=== PATIENT | male | born 1940 | race Caucasian/White ===

== ENCOUNTER 2017-01-22 08:51 | Day surgery (SDC) | payer MEDICARE, OTHER ==
[~2017-01-22 08:51] MED LIST: ADULT ASPIRIN81 MG PO; ENALAPRIL MALE2.5 M1 PO; METFORMIN HCL500 M4 PO; NIASPAN500 M1 PO; OMEPRAZOLE20 M3 PO; PREDNISONE; XARELTO20 M1 PO
[2017-01-22 09:41] LABS: BASO % 0.1 % (0-2); EOS % 0.5 % (0-7); HCT-HEMATOCRIT 41.4 % (36.0-53.5); HGB-HEMOGLOBIN 14.1 gm/dl (13.5-17.0); IMMATURE GRANULOCYTES ABSOLUTE 0.01 tho/cmm (0-0.03); IMMATURE GRANULOCYTES PERCENT 0.1 % (0-0.3); LYMPH % 77.5 % (20-45); MCH (MEAN CORPUSCULAR HGB) 32.9 pg (28.0-32.0); MCHC MEAN CORPUSCULAR HGB CONC 34.1 % (32.0-36.0); MCV (MEAN CELL VOLUME) 96.5 fl (82.0-96.0); MEAN PLATELET VOLUME 10.7 cmc (9.4-12.4); MONO % 7.2 % (0-12); NEUTROPHILS % 14.6 % (40-80); PLATELET COUNT 101 tho/cmm (150-450); RED BLOOD COUNT 4.29 mil/cmm (4.40-5.70); RED CELL DISTRIBUTION WIDTH 14.9 % (12.4-16.4); WHITE BLOOD COUNT 13.9 tho/cmm (4.0-10.0)
[2017-01-22 09:47] LABS: PROTHROMBIN TIME 12.1 SECONDS (9.0-13.6)
[2017-01-22 09:49] LABS: EOSINOPHIL ABSOLUTE COUNT 0.1 tho/cmm (0.0-0.7); LYMPH ABSOLUTE COUNT 10.8 tho/cmm (0.8-4.5)
[2017-01-22 11:00] LABS: WBC MORPHOLOGY VARIANT LYMPHS
[2017-01-22 14:49] LABS: BAL APPEARANCE CLEAR (CLEAR); BAL COLOR COLORLESS (COLORLESS)
[2017-01-22 15:55] LABS: BAL EOSINOPHILS 0 %; BAL LYMPHOCYTES 31 %; BAL NEUTROPHILS 10 %
== END 2017-01-22 14:05 ==
LOC: ENDOS 08:51 → SHSC 08:53
PROVIDERS: Internal Medicine Critical Care Medicine
PROC: 0B968ZX Drainage of Right Lower Lobe Bronchus, Via Natural or Artificial Opening Endoscopic, Diagnostic (ICD-10-PCS; principal; 2017-01-22)
DX: J90 Pleural effusion, not elsewhere classified (principal); I25.10 Atherosclerotic heart disease of native coronary artery without angina pectoris; I10 Essential (primary) hypertension; E11.9 Type 2 diabetes mellitus without complications; K21.9 Gastro-esophageal reflux disease without esophagitis; M19.90 Unspecified osteoarthritis, unspecified site; Z79.01 Long term (current) use of anticoagulants; Z79.84 Long term (current) use of oral hypoglycemic drugs; Z79.899 Other long term (current) drug therapy; Z86.711 Personal history of pulmonary embolism; Z85.828 Personal history of other malignant neoplasm of skin; Z90.49 Acquired absence of other specified parts of digestive tract; Z95.5 Presence of coronary angioplasty implant and graft; Z96.651 Presence of right artificial knee joint
CPT/HCPCS: J2250; J3010